=== PATIENT | female | born 1970 | race Asian ===

== ENCOUNTER 2022-12-13 14:36 | Outpatient (CLI) | payer BC ==
--- NOTE | 2022-12-13 16:36 | XRAY Report ---
PROCEDURE: Wrist 3 View LT INDICATIONS: LEFT WRIST SPRAIN TECHNIQUE: 3 views of the wrist were acquired. COMPARISON: None. FINDINGS: Bones: No definite fracture line. No cortical step-off. No dislocation. No suspicious bony lesions. Soft tissues: No suspicious soft tissue calcifications or masses. IMPRESSION: No fracture demonstrated. Reviewed by: Rancho Roberson MD on 12/13/2022 4:34 PM PDT Approved by: Rancho Roberson MD on 12/13/2022 4:34 PM PDT Station ID: [id number]
== END 2022-12-13 23:59 | disposition home or self-care (01) ==
LOC: DI.S 14:36
PROVIDERS: ATTEND Emergency Medicine
DX: S63.512A Sprain of carpal joint of left wrist, initial encounter (principal)